=== PATIENT | female | born 1995 | race American Indian/Alaskan Native ===

== ENCOUNTER 2017-12-05 01:39 | Emergency (ER) | payer SELFPAY ==
[2017-12-05 01:55] VITALS: RESP 18
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
[2017-12-05] MEDS ORDERED: TDAP Vaccine 0.5 mL Syr IM ONE (03:56)
[2017-12-05 06:09] VITALS: BP 120/87; PULSE 80; O2SAT 100
== END 2017-12-05 03:51 | disposition home or self-care (01) ==
LOC: MERGE 01:39 → ED 01:39
DX: S00.83XA Contusion of other part of head, initial encounter (principal); Y00.XXXA Assault by blunt object, initial encounter; Y92.9 Unspecified place or not applicable; Z23 Encounter for immunization